=== PATIENT | male | born 1970 | race Caucasian/White ===

== ENCOUNTER 2016-11-18 09:25 | Outpatient (CLI) | payer OTHER | END 2016-11-18 09:26 | disposition home or self-care (01) | DRG 563 | LOC: CONVCARE 09:25 | PROVIDERS: ATTEND Orthopaedic Surgery | DX: S82.391A Other fracture of lower end of right tibia, initial encounter for closed fracture (principal); V87.8XXA Person injured in other specified noncollision transport accidents involving motor vehicle (traffic), initial encounter | CPT/HCPCS: 73700 ==

== ENCOUNTER 2016-12-30 10:29 | Outpatient (CLI) | payer OTHER | END 2016-12-30 10:30 | disposition home or self-care (01) | DRG 561 | LOC: CONVCARE 10:29 | PROVIDERS: ATTEND Orthopaedic Surgery | DX: S82.871D Displaced pilon fracture of right tibia, subsequent encounter for closed fracture with routine healing (principal); M79.604 Pain in right leg; S82.51XD Displaced fracture of medial malleolus of right tibia, subsequent encounter for closed fracture with routine healing | CPT/HCPCS: 73610 ==

== ENCOUNTER 2017-02-03 10:32 | Outpatient (CLI) | payer OTHER | END 2017-02-03 10:33 | disposition home or self-care (01) | DRG 561 | LOC: CONVCARE 10:32 | PROVIDERS: ATTEND Orthopaedic Surgery | DX: S82.51XD Displaced fracture of medial malleolus of right tibia, subsequent encounter for closed fracture with routine healing (principal) | CPT/HCPCS: 73610 ==

== ENCOUNTER 2017-03-31 07:48 | Outpatient (CLI) | payer OTHER | END 2017-03-31 07:49 | disposition home or self-care (01) | DRG 561 | LOC: RAD 07:48 | PROVIDERS: ATTEND Orthopaedic Surgery | DX: S82.871D Displaced pilon fracture of right tibia, subsequent encounter for closed fracture with routine healing (principal); M79.604 Pain in right leg; R93.6 Abnormal findings on diagnostic imaging of limbs; M79.89 Other specified soft tissue disorders | CPT/HCPCS: 73610 ==

== ENCOUNTER 2017-06-02 11:50 | Outpatient (CLI) | payer OTHER | END 2017-06-02 11:51 | disposition home or self-care (01) | DRG 561 | LOC: CONVCARE 11:50 | PROVIDERS: ATTEND Orthopaedic Surgery | DX: S82.871D Displaced pilon fracture of right tibia, subsequent encounter for closed fracture with routine healing (principal); S82.51XD Displaced fracture of medial malleolus of right tibia, subsequent encounter for closed fracture with routine healing | CPT/HCPCS: 73610; 73700 ==